=== PATIENT | female | born 1980 | race Caucasian/White ===

== ENCOUNTER 2017-08-05 14:27 | Emergency (ER) | payer MEDICAID, SELFPAY ==
[2017-08-05 14:28] VITALS: BP 146/97; PULSE 86; RESP 15; TEMP 36.4; O2SAT 98; BMI 29.0
--- NOTE | 2017-08-05 15:22 | ED.VISSUMM ---
- ER Visit Summary Date of Service: 08/05/17 Chief Complaint: Back pain History of Present Illness: The patient is a 37 F presenting with back pain. She states this started yesterday. She states she had to kick in her basement door. She states her 4-year-old locked her in the basement and the only way to get out was to kick out the door frame. She has since had lower back and neck pain. She has tried Aleve at home. She is on gabapentin chronically for back pain. No previous back surgeries. She denies bowel or bladder incontinence. Denies numbness or weakness. She is able to ambulate with pain. No radiation of her pain. Physical Examination: Vitals are stable. Patient is afebrile. Alert no acute distress. HEENT exam is unremarkable. Neck is no midline tenderness, paraspinal muscle tenderness Lungs are clear and equal bilaterally. Heart is regular rate and rhythm. Abdomen is soft nontender nondistended. Back: bilateral paraspinal lumbar tenderness, no midline tenderness Extremities are unremarkable. Skin is warm and dry. No focal neurologic deficit. Normal strength and sensation. Remainder of exam is unremarkable. Emergency Department Course and Treatment: She is given Toradol IM. She is given a prescription for Flexeril. Advised to continue Aleve. Advised to follow-up with her primary care physician. Advised return ED if worsening complaints. Disposition: Discharge home Impression: Lumbar strain This note was generated with [employer] dictation software. It may contain incorrect words, spelling, and punctuation that were not noted in review of the chart prior to signing ED Disposition - Plan for ED Patient: Chief Complaint: Back Referrals: Aniket Barrett DO [Primary Care Provider] -
--- NOTE | 2017-08-05 15:29 | DCINST.ED_ITS ---
ED Disposition - Plan for ED Patient: Chief Complaint: Back Instructions: ED Sprain Strain Lumbar Prescriptions: Hydrocodone Bitart/Apap 5-325 [[place] 5/325] 1 tablet PO Q6H PRN PRN 2 Days #8 tablet PRN Reason: Pain Referrals: Aniket Barrett DO [Primary Care Provider] -
[2017-08-05] MEDS: Ketorolac 60 MG/2 ML Vial IM (15:34)
== END 2017-08-05 16:02 | disposition home or self-care (01) ==
PROVIDERS: Emergency Provider Emergency Medicine; Family Provider Family Medicine; PCP Family Medicine
DX: S39.012A Strain of muscle, fascia and tendon of lower back, initial encounter (principal); M54.2 Cervicalgia; M54.9 Dorsalgia, unspecified; G89.29 Other chronic pain; W22.8XXA Striking against or struck by other objects, initial encounter; Y93.9 Activity, unspecified; Y92.9 Unspecified place or not applicable; Z79.899 Other long term (current) drug therapy
CPT/HCPCS: 96372; 99282

== ENCOUNTER → 2020-04-17 09:50 | Outpatient (CLI) | payer MEDICAID, SELFPAY | PROVIDERS: Referring Provider Registered Nurse; Visit Provider Registered Nurse | DX: Z20.828 Contact with and (suspected) exposure to other viral communicable diseases (principal) | CPT/HCPCS: 87635; C9803; U0003 ==

== ENCOUNTER 2021-06-24 19:24 | Emergency (ER) | payer MEDICAID, SELFPAY ==
[2021-06-24 19:25] VITALS: BP 155/113; PULSE 97; RESP 18; TEMP 36.6; O2SAT 98; BMI 31.3
--- NOTE | 2021-06-24 21:35 | EDS_ITS ---
HPI History of Present Illness Chief Complaint: Chest Other Detail of Chief Complaint: Right rib pain Informant: patient Onset/Context/Timing Onset: Days (3 to 4 days) Context: Gradual Onset Timing: Waxes and wanes Current Severity: Moderate Maximum Severity: Severe Worsened by: Cough, movement, deep breath Narrative Narrative: Patient present secondary to right rib pain. She states that she broke her rib a month or so ago. Last week and she was coughing hard and now has increased pain to the right rib. She does not feel short of breath but does have increased pain with deep breathing. She has had no fever or chills. She took a Covid test yesterday that was negative. [facility] Medical History HTN (hypertension) Sciatica Home Medications gabapentin 300 mg PO QHS 06/24/21 [History Last Taken Unknown] hydrocodone-acetaminophen 1 tab PO Q6H PRN 3 Days #10 tab 06/24/21 [Rx Last Taken Unknown] lisinopril 10 mg PO DAILY 06/24/21 [History Last Taken Unknown] Allergy/AdvReac Type Severity Reaction Status Date / Time cyclobenzaprine HCl AdvReac restless Verified 01/24/17 15:47 [From Flexeril] legs Surgical History History of tonsillectomy and adenoidectomy Social History Smoking Status: Current every day smoker tobacco type: cigarettes ROS ROS ED Constitutional Constitutional ED: Denies chills or fever(s) Eyes Eyes: Denies change in vision ENT ENT ED: Denies sore throat Cardiovascular Cardiovascular: Reports chest pain Respiratory/Chest Respiratory/Chest: Reports cough; Denies dyspnea Gastrointestinal Gastrointestinal: Denies abdominal pain, diarrhea, nausea or vomiting Musculoskeletal Musculoskeletal: Denies back pain Integumentary Denies rash Neurologic Neurologic: Denies headache(s) or weakness Allergic/Immunologic Allergic/Immunologic ED: Denies urticaria EXAM Physical Exam Const Vital Signs: 06/24/21 19:25 06/24/21 20:55 Temperature 98 F Temperature Source Temporal Pulse Rate 97 Respiratory Rate 18 Respiratory Effort Normal Non-Labored Blood Pressure 155/113 H Blood Pressure Mean 127 Pulse Ox 98 Oxygen Delivery Method Room Air Positive well nourished and well developed General Appearance ED: well developed HEENT Reports moist mucous membranes Eyes PERRL and EOMs intact bilaterally Neck supple Chest Wall inspection of chest normal Chest Narrative: Right lateral chest wall tenderness. No crepitus. No overlying skin change. Resp normal respiratory effort and clear to auscultation bilaterally Cardio regular rate and regular rhythm GI non-tender Palpation: soft Extremity normal to inspection Neuro oriented x3 Sensorium / Orientation: alert Psych mental status grossly normal Skin no rashes or lesions noted MDM MDM MDM Narrative Medical decision making narrative: Patient given dose of [place]. Rib series with chest x-ray ordered. Radiography Diagnostic Testing: Clinical Impression(s) from Imaging Studies Ribs w/Chest X-Ray 06/24/21 21:50 IMPRESSION: RIBS: Normal x-ray examination of the ribs. CHEST: Normal x-ray examination of the chest. Electronically Signed: Anthony Camejo MD at 22:38 EST , Service support , Treatment and Re-Evaluation Comments:: No obvious abnormalities noted on my review of the images. Radiology rotation also reviewed. Patient will be given a prescription for [place] and can continue to use ibuprofen or Aleve at home for pain as well. Discharge Plan Triage Chief Complaint: Chest Other ED Provider: Tsering Dailey Dx/Rx/DC Orders Clinical Impression: Acute chest wall pain Instructions: ED Strain Chest Wall Prescriptions: New hydrocodone-acetaminophen 5-325 mg tablet 1 tab PO Q6H PRN (Reason: pain) 3 Days Qty: 10 RF: 0 No Action lisinopril 10 mg tablet 10 mg PO DAILY RF: 0 gabapentin 300 mg capsule 300 mg PO QHS RF: 0 Primary Care Provider: Care Physician,No Primary Referrals: Gregory Sy MD [STAFF PHYSICIAN] - As Needed Care Physician,No Primary [Primary Care Provider] - Disposition Disposition: Home, Self Care
[2021-06-24] MEDS: HYDROcodone Bitartrate/Apap 5/325 Tablet PO (21:47)
--- NOTE | 2021-06-24 21:50 | RAD_ITS ---
STUDY: X-RAY - UNILATERAL RIBS ( RIGHT ) WITH CHEST REASON FOR EXAM: Female, 41 years old. RIGHT ANTERIOR RIB PAIN AFTER COUGHING. SAID IT FEELS LIKE HER RIB POPPED OUT. TECHNIQUE - RIBS: 4 view(s) of the ribs. TECHNIQUE - CHEST: Single AP portable view of the chest. COMPARISON: Chest x-ray dated January 24, 2017 FINDINGS - RIBS: Normal visualized ribs without a demonstrated fracture. FINDINGS - CHEST: The lungs are clear and expanded. There is no demonstrated pleural abnormality. Normal size heart. Normal mediastinum and [place]. Normal visualized pulmonary arteries. Normal visualized aortic arch and descending thoracic aorta. Normal visualized thoracic spine. Normal visualized ribs, clavicles, and shoulders. There is no demonstrated abnormality of the visualized soft tissue structures of the upper abdomen. RAD/Ribs Uni Min 3V w/PA Chest IMPRESSION: RIBS: Normal x-ray examination of the ribs. CHEST: Normal x-ray examination of the chest. Electronically Signed: Anthony Camejo MD at 22:38 EST , Service support ,
== END 2021-06-24 23:01 | disposition home or self-care (01) ==
PROVIDERS: Emergency Provider Emergency Medicine; Visit Provider Emergency Medicine
DX: R07.89 Other chest pain (principal); I10 Essential (primary) hypertension; F17.210 Nicotine dependence, cigarettes, uncomplicated; Z79.899 Other long term (current) drug therapy; R05.9 Cough, unspecified
CPT/HCPCS: 71101; 99283

== ENCOUNTER → 2022-02-06 | Outpatient (CLI) | payer MEDICAID, SELFPAY ==
--- NOTE | 2022-02-06 11:01 | MRI_ITS ---
STUDY: MRI LUMBAR SPINE WITHOUT CONTRAST REASON FOR EXAM: Female, 42 years old. no known injury, pain in lower back into bilateral hips R.>L TECHNIQUE: Standardized fat and water weighted pulse sequences were obtained in the sagittal and axial planes. COMPARISON: Lumbar spine x-ray dated September 17, 2021 FINDINGS: No marrow edema or fracture or compression deformity is present. Normal lumbar lordosis. There is no substantial scoliosis. Normal conus medullaris that terminates at the L1 level. L1-2: Normal endplates. Normal disc height, hydration and morphology. Normal bilateral facet joints. Normal central canal and bilateral lateral recesses. Normal bilateral intervertebral neural foramina. L2-3: Normal endplates. Normal disc height, hydration and morphology. Normal bilateral facet joints. Normal central canal and bilateral lateral recesses. Normal bilateral intervertebral neural foramina. L3-4: Normal endplates. Normal disc height, hydration and morphology. Normal bilateral facet joints. Normal central canal and bilateral lateral recesses. Normal bilateral intervertebral neural foramina. L4-5: Normal endplates. Normal disc height, hydration and morphology. Mild facet joint hypertrophy and degeneration. Normal central canal and bilateral lateral recesses. Normal bilateral intervertebral neural foramina. L5-S1: Normal endplates. Normal disc height, hydration and morphology. Mild facet joint hypertrophy and degeneration. Normal central canal and bilateral lateral recesses. Normal bilateral intervertebral neural foramina. Normal visualized sacral ala. Normal visualized paraspinous soft tissue structures. MRI/Spine Lumbar (Routine) IMPRESSION: 1. Mild facet joint hypertrophy and degeneration at L4-L5 and L5-S1 Electronically Signed: Anthony Camejo MD at 15:52 EDT ,
== END | disposition home or self-care (01) ==
PROVIDERS: PCP Nurse Practitioner Primary Care; Referring Provider Orthopaedic Surgery; Visit Provider Orthopaedic Surgery
DX: M43.10 Spondylolisthesis, site unspecified (principal); M54.50 Low back pain, unspecified
CPT/HCPCS: 72148

== ENCOUNTER 2022-06-24 12:42 | Emergency (ER) | payer MEDICAID, SELFPAY ==
[2022-06-24 12:43] VITALS: BP 149/93; PULSE 87; RESP 14; TEMP 35.9; O2SAT 98; BMI 78.8
--- NOTE | 2022-06-24 15:25 | ED.RN ---
pt's name called, appropriately pt left at some point.
== END 2022-06-24 15:25 | disposition left against medical advice (07) ==
LOC: ED 15:37
PROVIDERS: Emergency Provider Emergency Medicine; PCP Nurse Practitioner Primary Care; Visit Provider Emergency Medicine
DX: S89.90XA Unspecified injury of unspecified lower leg, initial encounter (principal); X58.XXXA Exposure to other specified factors, initial encounter; Z53.21 Procedure and treatment not carried out due to patient leaving prior to being seen by health care provider

== ENCOUNTER → 2022-06-26 | Outpatient (CLI) | payer MEDICAID, SELFPAY ==
--- NOTE | 2022-06-26 12:25 | RAD_ITS ---
STUDY: X-RAY - PELVIS AND RIGHT HIP REASON FOR EXAM: Female, 42 years old. Pain. TECHNIQUE: 3 views of the pelvis and hip. COMPARISON: July 07, 2016 FINDINGS: There is a non-specific bowel gas pattern. Normal visualized soft tissue structures. Normal bilateral iliac wings, sacroiliac joints and visualized sacrum. Normal bilateral superior and inferior pubic rami. Normal pubic symphysis. Normal bilateral ischial tuberosities. Stable mild arthrosis of both hips, right greater than left. RAD/HIP, UNI W/ Pelvis 2-3 Views IMPRESSION: Stable mild arthrosis of both hips, right greater than left. No acute abnormality or erosive changes. Electronically Signed: Jatin Thakkar, at 13:16 EST ,
== END | disposition home or self-care (01) ==
LOC: RAD 12:09
PROVIDERS: PCP Nurse Practitioner Primary Care; Visit Provider Anesthesiology Pain Medicine
DX: M16.0 Bilateral primary osteoarthritis of hip (principal)
CPT/HCPCS: 73502